=== PATIENT | female | born 1975 | race Caucasian/White ===

== ENCOUNTER → 2017-12-06 | Outpatient (CLI) | payer MEDICAID ==
--- NOTE | 2017-12-06 15:59 | P.PN ---
Subjective Progress Note Date: 12/06/17 HPI: She presents with severe obstruction following the flu 2 weeks ago. Esophagram confirmse severe obstructionn ABDOMEN: Band at the left upper. PLAN: 1. Had 6.6 mL in and 3 mL removed.
--- NOTE | 2017-12-06 16:04 | FL ---
EXAMINATION TYPE: FL barium swallow DATE OF EXAM: 12/06/2017 LAP BANDING LIMITED ESOPHAGRAM: CLINICAL HISTORY: Vomiting and abdominal pain. Gastric lap band placed into thousand 8 with revision s in 2011 and 2014. 1 minute and 33 seconds of fluoroscopy time was utilized with 21 images saved. TECHNIQUE: Limited esophagram is performed utilizing 2-3 oz of barium. COMPARISON: None. FINDINGS: Pre-procedure loan teller image shows inferior positioning of the lap band below the gastroeso phageal junction. The patient then drank oral contrast. There is abnormal flow of contrast along the course of the esophagus towards the left band. There is near complete obstruction at the prolapsed la p band with only very trace amount of delayed flow through the lap band. There is no evidence of cont rast extravasation to suggest leak. IMPRESSION: Near complete obstruction secondary to prolapse of the gastric lap band.
[2017-12-06 16:59] VITALS: BP 135/81; PULSE 80; TEMP 98.2; BMI 27.5
== END ==
LOC: BARWHC3 14:25
PROVIDERS: ATTEND Surgery Plastic and Reconstructive Surgery
DX: K92.89 Other specified diseases of the digestive system (principal); Z98.84 Bariatric surgery status
CPT/HCPCS: 74220; 99213

== ENCOUNTER → 2018-01-31 | Outpatient (CLI) | payer MEDICAID ==
[2018-01-31 13:32] VITALS: BP 119/76; PULSE 73; TEMP 98.5; BMI 30.4
--- NOTE | 2018-01-31 13:33 | P.PN ---
Subjective Progress Note Date: 01/31/18 DATE OF SERVICE: 01/31/2018 CHIEF COMPLAINT: Bariatric assessment. HISTORY OF PRESENT ILLNESS: Priya Nolen is a 42-year-old female who presents with adjustable gastric band. She had her initial band placed 2008. She then had a port revision done 2011. She is 9 years out from her band placement. Her heaviest weight was 225 pounds. Her BMI was 43.3. Today, she comes in weighing 158 pounds from 142 pounds, 2 months ago. She has 15 pound weight gain in 2 months. She has maintained 67 pounds weight loss. Her percent excess weight loss is 68%. For her height of 5 feet and 1/2 inch, her ideal body weight 127 pounds. She reports uncontrolled appetite. PAST MEDICAL HISTORY: 1. Congenital hip dysplasia. 2. Anxiety. 3. Osteoarthritis of the lower back. 4. 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 x2. 2. Tubal ligation. 3. Lap band placement with revision in 2011. 4. Bilateral hip replacement. 5. Lab band port revision x 3. MEDICATIONS: 1. Wellbutrin. 2. Multivitamin. 3. Motrin. 4. Lexapro. 5. Xanax. ALLERGIES: 1. KEFLEX. 2. PENICILLIN. SOCIAL HISTORY: She is with 2 children. She denies any tobacco use. She has denies any alcohol or IV drug use. FAMILY HISTORY: Pertinent for kidney failure in mother. REVIEW OF SYSTEMS: CONSTITUTIONAL: Her heaviest weight was 225 pounds. Her BMI was 43.3. For her height of 5 feet and 1/2 inch, her ideal body weight 127 pounds. HEENT: No troubles with vision or hearing. NECK: Denies any lymphadenopathy. ENDOCRINE: No reports of hypothyroidism or diabetes. RESPIRATORY: No reports of obstructive sleep apnea. CARDIOVASCULAR: No history of heart attacks or palpitations. GI: Chronic constipation is now resolved. No reports of gastroesophageal reflux disease. MUSCULOSKELETAL: History of congenital hip dysplasia with chronic pain. NEURO: No reports of seizures. No stroke. PSYCH: No suicidal ideation or depression. SKIN: No rash. No skin cancer PHYSICAL EXAMINATION: VITAL SIGNS: 5 feet 0.5 inches, 158 pounds. BMI 30.5 Vital Signs Temp 98.5 F 01/31/18 13:25 Pulse 73 01/31/18 13:25 Resp BP 119/76 01/31/18 13:25 Pulse Ox GGENERAL: Well developed and in no acute distress. Pleasant. HEENT: No sclera icterus. Extraocular movements grossly intact. Moist buccal mucosa. Head is atraumatic, normocephalic. Hears conversational speech. No nasal drainage. NECK: Supple without lymphadenopathy. No JV distention. CHEST: Non-labored respirations and equal bilateral excursions. CARDIOVASCULAR: Regular rate and rhythm. Palpable 2+ radial pulses. ABDOMEN: Soft, nontender. Nondistended. Band at the left upper without erythema. MUSCULOSKELETAL: No clubbing, cyanosis or edema. NEUROLOGIC: No focal or lateralizing signs. Cranial nerves II-12 grossly intact PSYCH: Appropriate affect. Alert and oriented to person, place and time. SKIN: Good skin turgor. Well perfused. ASSESSMENT: 1. History of morbid obesity, BMI 43.3 initial to 30.5 2. Status post adjustable gastric band placement. 3. History of congenital bilateral hip dysplasia. 4. Dietary surveillance and counseling. PLAN: 1. Recommend esophagram for history of dysphagia. 2. Recommend adjustment of gastric band. Baseline total of 6.6 mL. 3. Presence of adjustable gastric band slippage or prolapse will require surgical intervention. PROCEDURE: BAND ADJUSTMENT DESCRIPTION: After verbal consent, the patient was laid supine. The skin was cleansed using chlorhexidine left upper quadrant. 1 mL of 1% lidocaine was used to anesthetize skin. Using a noncoring needle the port site was accessed. Current total of 3.6 mL was in the band. Added 2 mL with restriction. New total of 5.6 mL in the band. She was able to swallow without dysphagia.
== END | disposition home or self-care (01) ==
LOC: BARWHC3 13:01
PROVIDERS: ATTEND Surgery Plastic and Reconstructive Surgery
DX: E66.01 Morbid (severe) obesity due to excess calories (principal); Q65.89 Other specified congenital deformities of hip; R63.4 Abnormal weight loss; F41.9 Anxiety disorder, unspecified; M47.816 Spondylosis without myelopathy or radiculopathy, lumbar region; Z98.890 Other specified postprocedural states; Z98.84 Bariatric surgery status; Z96.643 Presence of artificial hip joint, bilateral; Z98.51 Tubal ligation status; Z88.0 Allergy status to penicillin; Z88.1 Allergy status to other antibiotic agents; Z68.30 Body mass index [BMI] 30.0-30.9, adult; Z79.1 Long term (current) use of non-steroidal anti-inflammatories (NSAID); Z79.899 Other long term (current) drug therapy; Z71.3 Dietary counseling and surveillance
CPT/HCPCS: 99212

== ENCOUNTER → 2018-02-14 | Outpatient (CLI) | payer MEDICAID ==
[2018-02-14 14:32] VITALS: BP 125/80; PULSE 79; TEMP 98.2; BMI 30.3
--- NOTE | 2018-02-14 14:44 | P.PN ---
Subjective Progress Note Date: 02/14/18 DATE OF SERVICE: 02/14/2018 CHIEF COMPLAINT: Bariatric assessment. HISTORY OF PRESENT ILLNESS: Priya Nolen is a 42-year-old female who presents with adjustable gastric band. She had her initial band placed 2008. She then had a port revision done 2011. She is 9 years out from her band placement. Her heaviest weight was 225 pounds. Her BMI was 43.3. Today, she comes in weighing 158 pounds and stable from her weight 2 weeks ago. She has maintained 67 pounds weight loss. Her percent excess weight loss is 68% . For her height of 5 feet and 1/2 inch, her ideal body weight 127 pounds. Despite her recent adjustment, she wants more restriction and still reports uncontrolled appetite. PHYSICAL EXAMINATION: VITAL SIGNS: 5 feet 0.5 inches, 158 pounds. BMI 30.5 Vital Signs Temp 98.2 F 02/14/18 14:26 Pulse 79 02/14/18 14:26 Resp BP 125/80 02/14/18 14:26 Pulse Ox GGENERAL: Well developed and in no acute distress. Pleasant. HEENT: No sclera icterus. Extraocular movements grossly intact. Moist buccal mucosa. Head is atraumatic, normocephalic. Hears conversational speech. No nasal drainage. NECK: Supple without lymphadenopathy. No JV distention. CHEST: Non-labored respirations and equal bilateral excursions. CARDIOVASCULAR: Regular rate and rhythm. Palpable 2+ radial pulses. ABDOMEN: Soft, nontender. Nondistended. Band at the left upper without erythema. MUSCULOSKELETAL: No clubbing, cyanosis or edema. NEUROLOGIC: No focal or lateralizing signs. Cranial nerves II-12 grossly intact PSYCH: Appropriate affect. Alert and oriented to person, place and time. SKIN: Good skin turgor. Well perfused. ASSESSMENT: 1. History of morbid obesity, BMI 43.3 initial to 30.3 2. Status post adjustable gastric band placement. 3. History of congenital bilateral hip dysplasia. 4. Dietary surveillance and counseling. PLAN: 1. Patient still reports hunger and she requests an adjustment. PROCEDURE: BAND ADJUSTMENT DESCRIPTION: After verbal consent, the patient was laid supine. The skin was cleansed using chlorhexidine left upper quadrant. 1 mL of 1% lidocaine was used to anesthetize skin. Using a noncoring needle the port site was accessed. Current total of 5.4 mL was in the band. Added 2 mL with restriction. New total of 7.4 mL in the band. She reported adequate restriction. Close follow- up described. Objective - Vital Signs Vital signs: Vital Signs Temp 98.2 F 02/14/18 14:26 Pulse 79 02/14/18 14:26 Resp BP 125/80 02/14/18 14:26 Pulse Ox Intake & Output 02/13/18 02/14/18 02/14/18 18:59 06:59 18:59 Weight 71.622 kg
== END | disposition home or self-care (01) ==
LOC: BARWHC3 13:29
PROVIDERS: ATTEND Surgery Plastic and Reconstructive Surgery
DX: Z48.815 Encounter for surgical aftercare following surgery on the digestive system (principal); E66.01 Morbid (severe) obesity due to excess calories; Q65.89 Other specified congenital deformities of hip; Z98.84 Bariatric surgery status; Z68.30 Body mass index [BMI] 30.0-30.9, adult; Z71.3 Dietary counseling and surveillance
CPT/HCPCS: 99212

== ENCOUNTER → 2018-02-15 | Outpatient (CLI) | payer MEDICAID ==
--- NOTE | 2018-02-15 11:56 | P.HPBAR ---
Bariatric H&P - History & Physicial H&P Date: 02/15/18 History & Physicial: Visit/CC: Patient initial contact: Initial weight: 99.291 kg Initial weight in pounds: Height: Initial BMI: Last weight: Current weight: Current weight in pounds: Current BMI: Paulina body weight (based on NIH guidelines): Excess body weight loss: The patient is a 42 year-old F who presents for Bariatric Assessment. Patient has complaints of dysphagia. She had an adjustment by Dr. Lazar earlier this week. She feels she is too tight. Past Medical History Past Medical History: GERD/Reflux, Rheumatoid Arthritis (RA) Additional Past Medical History / Comment(s): HTN-RESOLVED WITH WT LOSS, CONSTIPATION,ABD PAIN AT LAP BAND PORT, Reactive hypo glycemia History of Any Multi-Drug Resistant Organisms: None Reported Past Surgical History: Bariatric Surgery, Section, Joint Replacement, Tubal Ligation Additional Past Surgical History / Comment(s): lap band placement 06/29/2007, bilateral hip replacement, lap band port revision, x 2 Past Anesthesia/Blood Transfusion Reactions: Postoperative Nausea & Vomiting ( PONV) Additional Past Anesthesia/Blood Transfusion Reaction / Comm: takes awhile to wake up from anesthesia and has decreased cognition after anesthesia Past Psychological History: Anxiety, Depression Smoking Status: Never smoker Past Alcohol Use History: None Reported Past Drug Use History: None Reported - Past Family History Father Family Medical History: AFIB, Diabetes Mellitus, Hyperlipidemia, Myocardial Infarction (MT) Additional Family Medical History / Comment(s): right ventrical malfunction Mother Family Medical History: Cancer, Diabetes Mellitus, Hyperlipidemia, Hypertension , Osteoarthritis (OA) Additional Family Medical History / Comment(s): thyroid cancer Surgical - Exam - General well developed, no distress - Eyes PERRL - ENT normal pinna - Neck no masses - Respiratory normal expansion - Cardiovascular Rhythm: regular - Abdomen Abdomen: soft, non tender Bariatric Assessment & Plan Plan: Dysphagia. Patient LAP-BAND have fluid removed. 1.4 mL remove her band. She currently has 6 mL in the band. She'll follow-up as needed. Bariatric Checklist Checklist: Plan: Checklist: EGD: 1. Hiatal hernia: 2. H. Pylori: HgbA1c: Vitamin D: Smoking: Never smoker Primary care physician referral: Dr. Vishal Norton Psychiatry clearance: Cardiology clearance: Sleep study: Diet journal: VTE risk score: VTE risk level: Rehab needs at discharge:
[2018-02-15 12:09] VITALS: BP 124/81; PULSE 90; TEMP 98.2; BMI 29.4
== END ==
LOC: BARWHC3 11:29
PROVIDERS: ATTEND Surgery
DX: Z48.815 Encounter for surgical aftercare following surgery on the digestive system (principal); R13.10 Dysphagia, unspecified; Z98.84 Bariatric surgery status
CPT/HCPCS: 99212

== ENCOUNTER → 2018-11-06 | Outpatient (CLI) | payer MEDICAID ==
[2018-11-06 08:36] LABS: Basophils # (A) 0.1 k/uL (0-0.2); Basophils % (A) 2 %; Eosinophils # (A) 0.2 k/uL (0-0.7); Eosinophils % (A) 3 %; HCT 44.6 % (34.0-46.0); HGB 14.5 gm/dL (11.4-16.0); Lymphocytes # (A) 0.8 k/uL (1.0-4.8); Lymphocytes % (A) 18 %; MCHC 32.6 g/dL (31.0-37.0); Mean Platelet Volume 6.6; Monocytes # (A) 0.4 k/uL (0-1.0); Monocytes % (A) 9 %; Neutrophils # (A) 3.1 k/uL (1.3-7.7); Neutrophils % (A) 66 %; Platelet Count 283 k/uL (150-450); RBC 4.69 m/uL (3.80-5.40); RDW 13.2 % (11.5-15.5); WBC 4.8 k/uL (3.8-10.6)
[2018-11-06 14:57] LABS: Erythrocyte Sedimentation Rate 5 mm/hr (0-20)
[2018-11-06 17:53] LABS: ALT 15 U/L (8-44); AST 25 U/L (13-35); African American GFR (CKD) 128.5 (60.0-200.0); BUN/Creat Ratio 23.33 Ratio (12.00-20.00); C Reactive Protein <0.4 mg/dL (0.0-0.8); Calcium 9.1 mg/dL (8.7-10.3); Carbon Dioxide 23.7 mmol/L (21.6-31.8); Chloride 108 mmol/L (96-109); Chol/HDL Ratio 3.84; Cholesterol 192 mg/dL (0-200); Glucose 80 mg/dL (70-110); LDL Cholesterol,Calculated 123.2 mg/dL (0.0-131.0); Potassium 4.7 mmol/L (3.5-5.5); Sodium 141 mmol/L (135-145)
== END | disposition home or self-care (01) ==
LOC: LABWHC1 07:17
PROVIDERS: ATTEND Family Medicine
DX: F43.23 Adjustment disorder with mixed anxiety and depressed mood (principal); G43.119 Migraine with aura, intractable, without status migrainosus; M06.9 Rheumatoid arthritis, unspecified
CPT/HCPCS: 36415; 80048; 80061; 84450; 84460; 85025; 85652; 86140; 86162; 86431

== ENCOUNTER → 2023-06-08 | Outpatient (CLI) | payer MEDICAID, MEDICARE ==
--- NOTE | 2023-06-08 14:08 | MR ---
EXAMINATION TYPE: MR brain wo con DATE OF EXAM: 06/08/2023 1:40 PM COMPARISON: 10/07/2015 HISTORY: Slurred speech, headache, unsteady gait Multiplanar and multispin-echo imaging of the brain was performed . The ventricles, basal cisterns and sulci overlying the cerebral convexities are within normal limits. There is no evidence for midline shift or mass effect. Acute intracranial hemorrhage or extra-axial collection is not evident. Overall stable findings with moderate to severe patchy burden of T2 bright white matter change in bot h cerebral hemispheres. Differential considerations include premature advanced changes of chronic sma ll vessel ischemic disease, demyelinating process such as MS, or vasculitis such as Lyme' s disease. Clinically correlate. No acute edema is identified. The paranasal sinuses and mastoid air cells are well-aerated. IMPRESSION: Stable nonspecific T2 lesions.
== END | disposition home or self-care (01) ==
LOC: RADMRIMAIN 13:03
PROVIDERS: ATTEND Family Medicine
DX: R47.81 Slurred speech (principal); R51.9 Headache, unspecified; R11.0 Nausea; R06.89 Other abnormalities of breathing
CPT/HCPCS: 70551

== ENCOUNTER → 2023-06-23 | Outpatient (CLI) | payer MEDICAID, MEDICARE ==
--- NOTE | 2023-06-24 04:37 | EEG ---
ELECTROENCEPHALOGRAM REPORT CLINICAL HISTORY: This is a 48-year-old woman with reported syncopal episode and nonresponsiveness. The video EEG is obtained to evaluate for seizure epileptiform activity. RELEVANT MEDICATION: Xanax, that is reported on the EEG report. EEG TYPE: This is a routine 21-channel EEG with video using the 10/20 electrode placement system. DESCRIPTION: Wakefulness is obtained. During awake state, the posterior-dominant rhythm consists of low voltage of 9 to 10 hertz activity that is well modulated, well sustained. There is no physiological stage 2 sleep architecture. There is no focal slowing. There is mild to moderate myogenic artifact over the left temporal leads. Interictal and ictal is none. ACTIVATION PROCEDURE: Photic stimulation did evoke a posterior driving response at multiple frequencies. There is no abnormality during the photic stimulation. Hyperventilation is not performed. CLINICAL INTERPRETATION: This is a normal routine EEG. There is no focal slowing, epileptiform discharge, or seizure on the EEG. A normal routine EEG does not rule out underlying epilepsy. Clinical correlation is recommended. TONIO / CUCO: [id number] / MICHAEL
== END ==
LOC: NEUROMAIN 09:59
PROVIDERS: ATTEND Family Medicine
DX: R47.81 Slurred speech (principal); R55 Syncope and collapse; R51.9 Headache, unspecified; R11.0 Nausea; R06.89 Other abnormalities of breathing; Z88.1 Allergy status to other antibiotic agents; Z88.0 Allergy status to penicillin
CPT/HCPCS: 95816